=== PATIENT | male | born 1985 ===

== ENCOUNTER 2021-06-29 18:42 | Emergency (ER) | payer BC ==
[~2021-06-29] VITALS: Wt 108.9 kg
[2021-06-29] MEDS ORDERED: PREDNISONE20 M1 PO (21:30)
[2021-06-29] MEDS ORDERED: METHOCARBAMOL500 M1 PO (21:30)
== END 2021-06-29 21:42 | disposition home or self-care (01) ==
LOC: ED 18:42
DX: S29.019A Strain of muscle and tendon of unspecified wall of thorax, initial encounter (principal); S39.012A Strain of muscle, fascia and tendon of lower back, initial encounter; X58.XXXA Exposure to other specified factors, initial encounter; Y93.89 Activity, other specified; Y92.89 Other specified places as the place of occurrence of the external cause; Y99.8 Other external cause status